=== PATIENT | female | born 1930 | race Caucasian/White ===

== ENCOUNTER 2019-08-04 15:37 | Inpatient (IN) | payer MEDICARE, OTHER ==
[~2019-08-04] VITALS: Ht 162.6 cm; Wt 52.2 kg
[2019-08-04] MEDS ORDERED: NITROGLYCERIN 0.4MG TABLET SL SL PRN (17:15)
[2019-08-04] MEDS ORDERED: HYDRALAZINE 20MG/ML VIAL IV PRN (17:15)
[2019-08-04] MEDS ORDERED: LACTULOSE 20G/30ML UDC PO PRN (17:15)
[2019-08-04] MEDS ORDERED: LORAZEPAM 2MG/ML CPJ IV PRN (17:15)
[2019-08-04] MEDS ORDERED: ONDANSETRON HCL 4MG/2ML INJ IV PRN (17:15)
[2019-08-04 19:03] VITALS: BP 102/36
[2019-08-04 19:20] VITALS: BP 102/36
[2019-08-04 20:00] VITALS: BP 108/42
[2019-08-04] MEDS ORDERED: HYDRALAZINE 5 MG in SODIUM CHLORIDE 0.9% 49.5 ML IV PRN (20:00)
[2019-08-04] MEDS: FAMOTIDINE 20MG TABLET PO SCH (21:46)
[2019-08-04] MEDS: LEVETIRACETAM 500MG TABLET PO SCH (21:46)
[2019-08-04] MEDS: ALBUTEROL (0.083%) 2.5MG/3ML NEB HHN PRN (23:04)
[2019-08-05 02:46] VITALS: BP 113/44
[2019-08-05] MEDS: IPRATROPIUM BROMIDE (0.02%) 0.5MG/2.5ML NEB HHN SCH ×4 (03:11→21:25)
[2019-08-05 08:00] VITALS: BP 115/49
[2019-08-05] MEDS ORDERED: PNEUMOCOCCAL 23-VAL P-SAC VAC 0.5 ML IM ONE (09:00)
[2019-08-05 10:58] LABS: HEMATOCRIT. 27.8 % (36.0-48.0); HEMOGLOBIN. 9.4 g/dL (12.0-16.0); MEAN PLATELET VOLUME 7.9 fl (7.4-10.4); PLATELET 166 x1000/uL (130-400); RED BLOOD CELL COUNT 3.13 mill/uL (4.2-5.4); RED CELL DISTRIBUTION WIDTH 21.4 % (11.6-14.6)
[2019-08-05 11:05] LABS: CHLORIDE 109 mEq/L (98-107)
[2019-08-05 12:50] LABS: CLARITY URINE TURBID (CLEAR); COLOR URINE DARK YELLOW (YELLOW); KETONES URINE TRACE (NEGATIVE); LEUKOCYTE ESTERASE URINE 1+ (NEGATIVE); NITRITE URINE NEGATIVE (NEGATIVE); OCCULT BLOOD URINE 2+ (NEGATIVE); PH URINE 5.5 (4.5-8.0); PROTEIN URINE 2+ (NEGATIVE); SPECIFIC GRAVITY URINE 1.029 (1.005-1.030); UROBILINOGEN URINE 0.2 E.U./dL (0.2-1.0)
[2019-08-05] MEDS: LEVETIRACETAM 500MG TABLET PO SCH ×2 (13:53→21:50)
[2019-08-05 14:29] LABS: PLATELET ESTIMATE NORMAL
[2019-08-05] MEDS: ALBUTEROL (0.083%) 2.5MG/3ML NEB HHN PRN (14:45)
[2019-08-05] MEDS ORDERED: ONDANSETRON HCL 4MG TABLET PO PRN (15:15)
[2019-08-05] MEDS ORDERED: LORAZEPAM 0.5MG TABLET PO PRN (15:15)
[2019-08-05] MEDS ORDERED: SODIUM CHLORIDE 0.9% 500 ML IV SCH (16:45)
[2019-08-05] MEDS: MIDODRINE HCL 2.5MG TABLET PO SCH (18:44)
[2019-08-05] MEDS: ACETAMINOPHEN 650MG/20.3ML UDC PO PRN (19:37)
[2019-08-05 20:00] VITALS: BP 125/44
[2019-08-05] MEDS: FAMOTIDINE 20MG TABLET PO SCH (21:50)
[2019-08-06] MEDS: IPRATROPIUM BROMIDE (0.02%) 0.5MG/2.5ML NEB HHN SCH ×2 (01:41→07:35)
[2019-08-06 08:14] VITALS: BP 134/54
[2019-08-06 08:21] LABS: HEMATOCRIT. 31.7 % (36.0-48.0); HEMOGLOBIN. 10.2 g/dL (12.0-16.0); MEAN CORPUSCULAR HEMOGLOBIN 29.6 pg (28.0-32.0); MEAN CORPUSCULAR VOLUME 92.3 fL (81.0-99.0); MEAN PLATELET VOLUME 8.2 fl (7.4-10.4); PLATELET 173 x1000/uL (130-400); RED BLOOD CELL COUNT 3.43 mill/uL (4.2-5.4); RED CELL DISTRIBUTION WIDTH 23.2 % (11.6-14.6)
[2019-08-06 08:29] LABS: CHLORIDE 107 mEq/L (98-107)
[2019-08-06 08:34] LABS: PHOSPHORUS 3.1 mg/dL (2.5-4.9)
[2019-08-06 08:35] LABS: TOTAL IRON BINDING CAPACITY 183 ug/dL (250-450)
[2019-08-06 08:37] LABS: CREATINE KINASE 52 IU/L (26-192)
[2019-08-06] MEDS: MIDODRINE HCL 2.5MG TABLET PO SCH ×3 (09:00→17:00)
[2019-08-06 09:15] LABS: VITAMIN B12 SERUM >2000 pg/mL pg/mL (211-911)
[2019-08-06 09:45] LABS: BG BASE EXCESS 1.1 mmol/L (-2.0-2.0); BG CARBOXYHEMOGLOBIN 0.3 % (0.5-1.5); BG DEOXYHEMOGLOBIN 1.9 % (0.0-5.0); BG FRACTION INSPIRED OXYGEN 36; BG HCO3 ACT 24.4 mmol/L (22.0-26.0); BG METHEMOGLOBIN 0.3 % (0.0-1.5); BG OXYGEN SATURATION 98.1 % (92.0-98.5); BG OXYHEMOGLOBIN 97.5 % (94.0-97.0); BG PH 7.474 (7.350-7.450); BG PO2 116.5 mmHg (75.0-100.0); BG SAMPLE SITE RIGHT RADIAL; BG TOTAL HEMOGLOBIN 9.8 g/dL (12.0-18.0); BG VENT MODE NASAL CANNULA
[2019-08-06] MEDS: LEVETIRACETAM 500MG TABLET PO SCH ×2 (10:02→21:19)
[2019-08-06] MEDS: ACETAMINOPHEN 650MG/20.3ML UDC PO PRN (10:41)
[2019-08-06 13:48] LABS: PLATELET ESTIMATE NORMAL
[2019-08-06] MEDS ORDERED: SODIUM BICARBONATE 4% (2.4MEQ) 5ML VIAL IV ONE (14:27)
[2019-08-06] MEDS ORDERED: LIDOCAINE HCL 1% 20ML VIAL (Pyxis) INJ ONE (14:27)
[2019-08-06] MEDS ORDERED: NA PHOS,M-B/NA PHOS,DI-BA ENEMA 118ML PR NR (14:30)
[2019-08-06 20:00] VITALS: BP 123/53
[2019-08-06] MEDS: FAMOTIDINE 20MG TABLET PO SCH (21:19)
[2019-08-06] MEDS: ALBUTEROL 6.7GM HFA INHALER ORI SCH (21:20)
[2019-08-06 22:32] LABS: FERRITIN 534 ng/mL (10-291)
[2019-08-07] MEDS: ALBUTEROL 6.7GM HFA INHALER ORI SCH ×4 (01:29→16:45)
[2019-08-07 08:00] VITALS: BP 107/48
[2019-08-07] MEDS ORDERED: DIATR MEGLU/DIATRIZOATE SOLN 30ML ONE (08:20)
[2019-08-07] MEDS ORDERED: IOHEXOL-300 50 ML BOTTLE IV ONE (08:23)
[2019-08-07] MEDS ORDERED: DIATR MEGLU/DIATRIZOATE SOLN 30ML PO SCH (09:00)
[2019-08-07] MEDS ORDERED: BARIUM SULFATE 450ML ORAL SUSP PO SCH (09:00)
[2019-08-07] MEDS: ZINC SULFATE 220 MG ( 50 ) CAPSULE PO SCH (09:00)
[2019-08-07] MEDS: LEVETIRACETAM 500MG TABLET PO SCH ×2 (09:00→21:59)
[2019-08-07] MEDS: ASCORBIC ACID 250 MG TABLET PO SCH (09:00)
[2019-08-07] MEDS: MIDODRINE HCL 2.5MG TABLET PO SCH ×4 (09:00→16:52)
[2019-08-07 09:59] LABS: BASOPHILS % 0.5 % (0.0-2.0); EOSINOPHILS % 0.4 % (0.0-5.0); HEMATOCRIT. 32.3 % (36.0-48.0); HEMOGLOBIN. 10.6 g/dL (12.0-16.0); LYMPHOCYTES % 8.9 % (20.0-50.0); MEAN CORPUSCULAR HEMOGLOBIN 30.2 pg (28.0-32.0); MEAN CORPUSCULAR VOLUME 92.3 fL (81.0-99.0); MEAN PLATELET VOLUME 8.5 fl (7.4-10.4); MONOCYTES % 3.2 % (2.0-8.0); PLATELET 155 x1000/uL (130-400); RED CELL DISTRIBUTION WIDTH 23.5 % (11.6-14.6)
[2019-08-07 10:05] LABS: CHLORIDE 107 mEq/L (98-107)
[2019-08-07 10:06] LABS: INR 1.1; PROTHROMBIN TIME 12.2 sec (9.6-11.0)
[2019-08-07] MEDS ORDERED: SODIUM BICARBONATE 4% (2.4MEQ) 5ML VIAL IV ONE (10:47)
[2019-08-07] MEDS ORDERED: LIDOCAINE HCL 1% 20ML VIAL (Pyxis) INJ ONE (10:49)
[2019-08-07 20:00] VITALS: BP 117/46
[2019-08-07] MEDS: FAMOTIDINE 20MG TABLET PO SCH (21:59)
[2019-08-08] MEDS ORDERED: DEXT 5%/0.45% NACL 1000ML 1,000 ML IV SCH (07:15)
[2019-08-08 07:17] LABS: BASOPHILS % 0.3 % (0.0-2.0); HEMATOCRIT. 31.5 % (36.0-48.0); HEMOGLOBIN. 10.3 g/dL (12.0-16.0); LYMPHOCYTES % 7.5 % (20.0-50.0); MEAN CORPUSCULAR HEMOGLOBIN 30.4 pg (28.0-32.0); MEAN CORPUSCULAR VOLUME 93.5 fL (81.0-99.0); MEAN PLATELET VOLUME 8.5 fl (7.4-10.4); MONOCYTES % 3.5 % (2.0-8.0); NEUTROPHILS % 88.7 % (40.0-76.0); PLATELET 132 x1000/uL (130-400); RED BLOOD CELL COUNT 3.37 mill/uL (4.2-5.4); RED CELL DISTRIBUTION WIDTH 23.9 % (11.6-14.6)
[2019-08-08 07:38] LABS: CHLORIDE 109 mEq/L (98-107)
[2019-08-08 07:45] LABS: PHOSPHORUS 3.5 mg/dL (2.5-4.9)
[2019-08-08 08:00] VITALS: BP 107/35
[2019-08-08] MEDS: ZINC SULFATE 220 MG ( 50 ) CAPSULE PO SCH (09:54)
[2019-08-08] MEDS: LEVETIRACETAM 500MG TABLET PO SCH ×2 (09:54→21:14)
[2019-08-08] MEDS: MIDODRINE HCL 2.5MG TABLET PO SCH ×3 (09:54→17:00)
[2019-08-08] MEDS: ALBUTEROL 6.7GM HFA INHALER ORI SCH ×3 (09:56→14:57)
[2019-08-08] MEDS: ACETAMINOPHEN 650MG/20.3ML UDC PO PRN (09:57)
[2019-08-08] MEDS: ASCORBIC ACID 250 MG TABLET PO SCH (10:13)
[2019-08-08] MEDS: DEXT 5%/0.45% NACL 1000ML 1,000 ML IV SCH (14:57)
[2019-08-08 15:16] VITALS: BP 81/56
[2019-08-08 20:00] VITALS: BP 136/37
[2019-08-08 20:02] LABS: CREATINE KINASE 153 IU/L (26-192)
[2019-08-08] MEDS: FAMOTIDINE 20MG TABLET PO SCH (21:37)
[2019-08-09] VITALS: BP 136/37
[2019-08-09] MEDS: DEXT 5%/0.45% NACL 1000ML 1,000 ML IV SCH ×3 (02:33→22:51)
[2019-08-09 07:10] LABS: 25-HYDROXY VITAMIN D3 21 ng/mL (.)
[2019-08-09 08:00] VITALS: BP 121/59
[2019-08-09] MEDS: ACETAMINOPHEN 650MG/20.3ML UDC PO PRN (09:10)
[2019-08-09] MEDS: ASCORBIC ACID 250 MG TABLET PO SCH (09:10)
[2019-08-09] MEDS: LEVETIRACETAM 500MG TABLET PO SCH ×2 (09:10→21:00)
[2019-08-09] MEDS: ZINC SULFATE 220 MG ( 50 ) CAPSULE PO SCH (09:10)
[2019-08-09] MEDS: MIDODRINE HCL 2.5MG TABLET PO SCH ×3 (09:11→17:00)
[2019-08-09] MEDS: ALBUTEROL 6.7GM HFA INHALER ORI SCH ×2 (09:16→14:00)
[2019-08-09] MEDS ORDERED: ERGOCALCIFEROL 50000UNITS CAPSULE PO SCH (14:00)
[2019-08-09 20:00] VITALS: BP 133/45
[2019-08-09 20:35] VITALS: BP 123/58
[2019-08-09] MEDS: FAMOTIDINE 20MG TABLET PO SCH (21:00)
[2019-08-09] MEDS ORDERED: GUAIFENESIN 600MG ER TABLET PO SCH (21:00)
[2019-08-09 21:36] VITALS: BP 122/47
[2019-08-09 22:30] VITALS: BP 129/44
== END 2019-08-09 23:30 | disposition short-term general hospital (02) | DRG 85 ==
LOC: EDBD 15:37
PROVIDERS: ADMIT Physical Medicine & Rehabilitation Spinal Cord Injury Medicine; ATTEND Internal Medicine
PROC: 0J9C3ZZ Drainage of Pelvic Region Subcutaneous Tissue and Fascia, Percutaneous Approach (ICD-10-PCS; principal; 2019-08-07)
DX: S06.5X0A Traumatic subdural hemorrhage without loss of consciousness, initial encounter (principal); L89.313 Pressure ulcer of right buttock, stage 3; G82.50 Quadriplegia, unspecified; E43 Unspecified severe protein-calorie malnutrition; R47.01 Aphasia; N39.0 Urinary tract infection, site not specified; N17.9 Acute kidney failure, unspecified; G96.0 Cerebrospinal fluid leak; Z68.1 Body mass index [BMI] 19.9 or less, adult; J90 Pleural effusion, not elsewhere classified; L97.809 Non-pressure chronic ulcer of other part of unspecified lower leg with unspecified severity; R13.10 Dysphagia, unspecified; R47.1 Dysarthria and anarthria; R53.81 Other malaise; E87.6 Hypokalemia; Z92.3 Personal history of irradiation; Z85.3 Personal history of malignant neoplasm of breast; I10 Essential (primary) hypertension; D63.8 Anemia in other chronic diseases classified elsewhere; S01.01XA Laceration without foreign body of scalp, initial encounter; C50.919 Malignant neoplasm of unspecified site of unspecified female breast; R62.7 Adult failure to thrive; Z79.899 Other long term (current) drug therapy; Z87.891 Personal history of nicotine dependence; Z90.10 Acquired absence of unspecified breast and nipple; W18.39XA Other fall on same level, initial encounter; Y93.89 Activity, other specified; Y92.89 Other specified places as the place of occurrence of the external cause; Y99.8 Other external cause status; E55.9 Vitamin D deficiency, unspecified; I12.9 Hypertensive chronic kidney disease with stage 1 through stage 4 chronic kidney disease, or unspecified chronic kidney disease; N18.9 Chronic kidney disease, unspecified; R19.00 Intra-abdominal and pelvic swelling, mass and lump, unspecified site; N13.9 Obstructive and reflux uropathy, unspecified; Z82.49 Family history of ischemic heart disease and other diseases of the circulatory system; L89.326 Pressure-induced deep tissue damage of left buttock; R00.0 Tachycardia, unspecified; I95.9 Hypotension, unspecified; I51.7 Cardiomegaly; R80.9 Proteinuria, unspecified; N94.89 Other specified conditions associated with female genital organs and menstrual cycle; Y84.6 Urinary catheterization as the cause of abnormal reaction of the patient, or of later complication, without mention of misadventure at the time of the procedure; T83.021A Displacement of indwelling urethral catheter, initial encounter
CPT/HCPCS: 36415; 36600; 71045; 74176; 76604; 76700; 76770; 76857; 77012; 80048; 80053; 81003; 82140; 82306; 82375; 82550; 82570; 82607; 82728; 82746; 82805; 83540; 83550; 83735; 83880; 84100; 84134; 84443; 85025; 87070; 87075; 87077; 87186; 92523; 92610; 93005; 93306; 93970; 94640; 97110; 97116; 97163; 97166; 97530; 97535; C1729; C1769; J3490; L8514; Q9963; Q9967